=== PATIENT | female | born 1955 | race Caucasian/White ===

== ENCOUNTER 2018-04-04 10:27 | Inpatient (IN) | payer OTHER ==
[2018-04-04] VITALS (7 sets, daily range): BP systolic 116–159; BP diastolic 55–76
[~2018-04-04] VITALS: Ht 157.5 cm; Wt 98.9 kg
--- NOTE | ~2018-04-04 | EKG ---
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 : 1955 Requested By: Kareem Oviedo Order Number: [id number] MD: Jessee Puente Measurements Intervals [place] Rate: 64 P: 36 PA: 174 QRS: 39 QRSD: 90 T: 22 QT: 427 QTc: 441 Interpretive Statements Sinus rhythm Borderline T abnormalities, anterior leads Compared to ECG 06/27/2013 09:16:15 T-wave abnormality is less pronounced Electronically Signed On 04-07-2018 9:04:28 CDT by Jessee Puente [email or web address] <ELECTRONICALLY SIGNED> By: Jsesee Puente MD, [facility] 04/07/18 0904 1033 1033 Jessee Puente MD, [facility] /EPI
--- NOTE | ~2018-04-04 | 2DMMODE ---
[facility] [address] [place] [address] 2 D/M-MODE ECHOCARDIOGRAM Name: JAIMEE BACH [facility] Room #: 208-P [facility] [place] .R.#: [id number] Admission: 04/04/18 Attend Phys: Mekhi Bolton MD Discharge: Date of : 53 Date of Service: 04/04/18 1540 Report #: [id number] THIS REPORT FOR: //name// APPROVED REPORT Study performed: 04/04/2018 13:37:56 EXAM: Comprehensive 2D, Doppler, and color-flow Echocardiogram Patient Location: Bedside Room #: 208 Status: routine BSA: 1.98 HR: 52 bpm BP: 150/91 mmHg Other Information Study Quality: Fair Indications Bradycardia Syncope Hypertension/HDD 2D Dimensions IVC: 20.00 mm Aortic Valve AoV Peak Ivan.: 1.28 m/s AO Peak Gr.: 6.57 mmHg LVOT Max P.70 mmHg LVOT Max V: 0.96 m/s Mitral Valve E/A Ratio: 0.9 MV Decel. Time: 266.27 ms MV E Max Ivan.: 0.96 m/s MV A Ivan.: 1.12 m/s MV PHT: 77.22 ms IVRT: 154.56 ms Pulmonary Valve PV Peak Ivan.: 0.82 m/s PV Peak Gr.: 2.67 mmHg Pulmonary Vein P Vein S: 0.55 m/s P Vein A: 0.31 m/s P Vein D: 0.32 m/s P Vein A Dur.: 147.6 msec [facility] [address] [place] [address] 2 D/M-MODE ECHOCARDIOGRAM Name: JAIMEE BACH [facility] Room #: 208-P [facility] [place] ..#: [id number] Admission: 04/04/18 Attend Phys: Mekhi Bolton MD Discharge: Date of : 53 Date of Service: 04/04/18 1540 Report #: [id number] P Vein S/D Ratio: 1.72 Left Ventricle The left ventricle is normal size. Regional wall motion is not well visualized but grossly normal. There is normal left ventricular wall thickness. The left ventricular systolic function is normal. The left ventricular ejection fraction is within the normal range. LVEF is 60-65%. Grade I - abnormal relaxation pattern. Right Ventricle The right ventricle is normal size. The right ventricular systolic function is normal. Atria The left atrium size is normal. The right atrium size is normal. Aortic Valve The aortic valve is normal in structure. No aortic regurgitation is present. There is no aortic valvular stenosis. Mitral Valve Mild mitral annular calcification There is no mitral valve regurgitation noted. No evidence of mitral valve stenosis. Tricuspid Valve The tricuspid valve is normal in structure. There is no tricuspid valve regurgitation noted. Pulmonic Valve The pulmonary valve is normal in structure. There is no pulmonic valvular regurgitation. Great Vessels The aortic root is normal in size. IVC is normal in size and collapses >50% with inspiration. Pericardium There is no pericardial effusion. <Conclusion> The left ventricular systolic function is normal. Regional wall motion is not well visualized but grossly normal. LVEF is 60-65%. Mild diastolic dysfunction. The aortic valve is normal in structure. No aortic regurgitation or stenosis [facility] [place] [address] 2 D/M-MODE ECHOCARDIOGRAM Name: JAIMEE BACH [facility] Room #: 208-P ADM IN M.R.#: [id number] Admission: 04/04/18 Attend Phys: Mekhi Bolton MD Discharge: Date of : 53 Date of Service: 04/04/181539 Report #: [id number] Mild mitral annular calcification. No mitral valve regurgitation noted. Pulmonary artery pressure could not be reliably ascertained There is no pericardial effusion. <ELECTRONICALLY SIGNED> By: Jessee Puente MD, FACC 04/04/181539 39 39 Jessee Puente MD, FACC /INF
[~2018-04-04 10:27] MED LIST: ACETAMINOPHEN650 M5 PO; ADVIL100 M2 PO; BISOPROLOL FUMAR5 M1 PO; BISOPROLOL FUMAR5 MG PO; CALTRATE 600 +1 EACH PO; CALTRATE-600 W1 EACH PO; CELEBREX 200 M200 M1 PO; COLACE100 MG PO; CYCLOBENZAPRINE10 MG PO; FLEXERIL PO; FLONASE16 GM NASAL; HYDROCODON-ACE1 EAC5 PO; HYDROCODON-ACE1 EAC7 PO; IBUPROFEN 200200 M1 PO; LEVOTHYROXINE0.05 MG PO; LUNESTA3 MG PO; MAALOX PLUS X-150 ML PO; MAGNESIUM250 M1 PO; METHOCARBAMOL750 MG PO; VITAMINC500 PO; XARELTO10 M1 PO
[2018-04-04 11:37] LABS: ANION GAP 9 mmol/L (7-16); BUN 19 mg/dL (7-18); CALCIUM 9.4 mg/dL (8.5-10.1); CHLORIDE 106 mmol/L (98-107); CO2 24 mmol/L (21-32); CREATININE 1.4 mg/dL (0.6-1.0); GLUCOSE 98 mg/dL (74-106); POTASSIUM 4.1 mmol/L (3.5-5.1); SODIUM 139 mmol/L (136-145)
[2018-04-04 11:43] LABS: BASOPHILS 0.8 % (0.0-2.0); EOSINOPHILS 1.2 % (0.0-3.0); HEMATOCRIT 35.3 % (37.0-47.0); HEMOGLOBIN 11.9 gm/dL (12.0-15.0); LYMPHOCYTES 27.1 % (24.0-44.0); MCH 25.5 pg (26.0-34.0); MCHC 33.8 g/dL (28.0-37.0); MCV 75.6 fL (80.0-100.0); PLATELET COUNT 203 thou/uL (150-400); POLYS 64.9 % (36.0-66.0); RBC 4.67 mil/uL (4.20-5.00); RDW 15.7 % (10.5-14.5); WBC 7.7 thou/uL (4.0-11.0)
[2018-04-04 11:45] LABS: MAGNESIUM 2.1 mg/dL (1.8-2.4); TROPONIN-I <0.06 ng/mL (<0.06)
[2018-04-04] MEDS ORDERED: ARICEPT10 MG PO (13:28)
[2018-04-04] MEDS ORDERED: NAMENDA 10 MG T10 MG PO (13:29)
[2018-04-04] MEDS ORDERED: MIDODRINE HCL 55 M1 PO (13:31)
[2018-04-04 17:13] LABS: % SATURATION 12 % (20-39); IRON 40 ug/dL (50-170); TIBC 322 ug/dL (250-450)
[2018-04-05 03:06] LABS: GLYCOHEMOGLOBIN (HGB A1C) 5.2 % (4.8-5.6)
[2018-04-05 03:53] VITALS: BP 113/69
[2018-04-05 06:01] LABS: ABSOLUTE NEUTROPHILS 3.9 thou/uL (1.4-8.2); BASOPHILS 0.6 % (0.0-2.0); EOSINOPHILS 1.3 % (0.0-3.0); HEMATOCRIT 32.9 % (37.0-47.0); HEMOGLOBIN 11.3 gm/dL (12.0-15.0); LYMPHOCYTES 38.7 % (24.0-44.0); MCHC 34.3 g/dL (28.0-37.0); MCV 75.8 fL (80.0-100.0); MONOCYTES 5.6 % (1.0-8.0); PLATELET COUNT 181 thou/uL (150-400); POLYS 53.8 % (36.0-66.0); RBC 4.35 mil/uL (4.20-5.00); RDW 16.1 % (10.5-14.5); WBC 7.2 thou/uL (4.0-11.0)
[2018-04-05 06:15] LABS: CALCIUM 8.9 mg/dL (8.5-10.1); CREATININE 1.3 mg/dL (0.6-1.0); MAGNESIUM 2.2 mg/dL (1.8-2.4); POTASSIUM 3.9 mmol/L (3.5-5.1)
[2018-04-05 06:24] LABS: CHOLESTEROL 150 mg/dL (<200); HDL CHOLESTEROL 40 mg/dL (>40); LDL CHOLESTEROL 96 mg/dL (<100); TC:HDL 3.8 Ratio (Not establshd); TRIGLYCERIDE 71 mg/dL (<150); VLDL 14 mg/dL (<40)
[2018-04-05 07:26] VITALS: BP 135/57
[2018-04-05 10:41] VITALS: BP 148/59
[2018-04-05 10:50] VITALS: BP 148/59
== END 2018-04-05 11:55 | disposition home or self-care (01) | DRG 312 ==
LOC: ER 10:27 → EROBS 12:11 → 2N 13:09
PROVIDERS: Hospitalist; Nurse Practitioner; Physician Assistant
DX: I95.1 Orthostatic hypotension (principal); N17.9 Acute kidney failure, unspecified; R00.1 Bradycardia, unspecified; I10 Essential (primary) hypertension; K21.9 Gastro-esophageal reflux disease without esophagitis; G89.29 Other chronic pain; M54.9 Dorsalgia, unspecified; F03.90 Unspecified dementia, unspecified severity, without behavioral disturbance, psychotic disturbance, mood disturbance, and anxiety; E86.0 Dehydration; D64.9 Anemia, unspecified; E53.8 Deficiency of other specified B group vitamins; Z96.659 Presence of unspecified artificial knee joint; I65.29 Occlusion and stenosis of unspecified carotid artery; Z88.0 Allergy status to penicillin; Z88.2 Allergy status to sulfonamides; Z79.899 Other long term (current) drug therapy
CPT/HCPCS: 10081

== ENCOUNTER 2018-04-14 15:49 | Inpatient (IN) | payer OTHER ==
[~2018-04-14] VITALS: Ht 157.5 cm; Wt 97.2 kg
--- NOTE | ~2018-04-14 | P ---
[facility] [place] [address] [place] [address] PROCEDURE REPORT Name: LALA BACH Room #: 208-P [facility] M.R.#: [id number] Admission: 04/14/18 Attend Phys: Shiraz Norwood MD Discharge: 04/16/18 Date of : 53 Report #: [id number] THIS REPORT FOR: //name// CC: Shiraz Rowland PROCEDURE: Dual chamber pacemaker implantation. PREOPERATIVE DIAGNOSES: 1. Recurrent syncope. 2. Sick sinus syndrome. 3. Symptomatic bradycardia. HISTORY OF PRESENT ILLNESS: The patient is a 62-year-old with a history of recurrent syncopal episodes, who has been wearing a header operator. She was recently in the hospital after she was noted to have a 3-second pause while sleeping. At that time, I did not recommend a pacemaker implantation. However, she continued to wear the monitor, which we were carefully following and she had another 10-second pause during the middle of the day. As such, she is here for dual chamber pacemaker implantation. ANESTHESIA: The patient underwent MAC anesthesia with no anesthesia related complications. DESCRIPTION OF PROCEDURE: The patient underwent informed consent. We discussed the details of the procedure including the risks, which included but not limited to bleeding, infection, vascular damage, cardiac perforation, pneumothorax. She understood these risks and is willing to proceed. As such, she is brought to the EP laboratory in a fasting and unsedated state and prepped and draped in a sterile fashion. I injected lidocaine at the incision site below the level of the right clavicle. The patient is left handed. Next, an incision was made, pocket was created over the prepectoral fascia and access was obtained twice to the right axillary vein. Of note, she did receive IV antibiotics prior to initiation of the procedure and did undergo a venogram. Next, sheaths were positioned using the modified Seldinger technique and then leads were positioned in the right ventricular apex and the right atrial appendage, both with adequate pacing and sensing thresholds. These leads were sutured to the prepectoral fascia using Ethibond. The pocket was irrigated with vancomycin. The device was connected and tested and found to be functioning normally. The pocket was closed in 3 layers and surgical glue was placed to the skin layer and one Steri-Strip was placed at the lateral edge. The patient awoke neurologically and hemodynamically intact with no complications and no significant bleeding. The implanted pacemaker was a [employer], model #2272, serial #[id number]. The atrial lead was a [employer], model # [id number], 46 cm, serial # [id number] with a P-wave of 4.4 millivolts, pacing impedance of 550 ohms and a pacing threshold of 0.75 volts at 0.4 milliseconds. The RV lead was a [employer], model # [id number], 52 cm, serial # [id number]. This lead [address] [address] PROCEDURE REPORT Name: LALA BACH Room #: 208-P [facility] IN M.R.#: [id number] Admission: 04/14/18 Attend Phys: Shiraz Norwood MD Discharge: 04/16/18 Date of : 53 Report #: [id number] demonstrated R-wave of 9.9 millivolts, pacing impedance of 680 ohms and the pacing threshold 0.5 volts at 0.4 milliseconds. The patient received an MRI compatible device due to her known neurologic issues and dementia as well as orthopedic issues. The pacemaker was programmed to DDDR 60-130 mode. CONCLUSIONS: 1. Successful dual-chamber pacemaker implantation. 2. Satisfactory atrial and ventricular pacing and sensing thresholds. <ELECTRONICALLY SIGNED> By: Shiraz Norwood MD 04/21/18 1454 0753 0819 Shiraz Norwood MD /nt
--- NOTE | ~2018-04-14 | D ---
[facility] [place] [address] [place] [address] DISCHARGE SUMMARY Name: LALA BACH Room #: 208-P [facility] IN M.R.#: [id number] Admission: 04/14/18 Attend Phys: Shiraz Norwood MD Discharge: 04/16/18 Date of : 53 Report #: [id number] THIS REPORT FOR: //name// CC: SHIRA Rowland DISCHARGE DIAGNOSES: 1. Recurrent syncope. 2. Symptomatic bradycardia. 3. Sick sinus syndrome. HISTORY OF PRESENT ILLNESS: The patient is a 62-year-old female with some history of dementia, neurologic issues. She has also recently been having new onset syncopal episodes. She was recently admitted here after she was noted to have a 3 second pause while sleeping. She was monitored, but did not have any further arrhythmias. She was therefore discharged with plans to follow up with me in 1 month after she completed wearing her security monitor. On the day of admission here again, she was noted to have another prolonged pause of 10 seconds duration. As such, she was called and readmitted. She underwent successful [employer] MRI compatible dual chamber pacemaker implantation from the right side on 04/15/2018. The procedure was successful without complications. HOSPITAL COURSE: She was monitored in the CCU overnight. On the day of discharge, she denied any chest pain, shortness of breath, fevers or chills. On physical exam, her heart was regular rate and rhythm. Lungs were clear to auscultation bilaterally. Her incision site was healing nicely with a Steri-Strip noted at the lateral edge. Her vitals were stable. Telemetry revealed sinus rhythm. Device interrogation demonstrated normal device function with atrial pacing around 70% and less than 1% ventricular pacing. There were no arrhythmias noted on her device interrogation. The chest x-ray was performed, which I visualized, which showed stable lead positions, and there was no evidence of pneumothorax. As such, she was deemed stable for discharge home. Discharge instructions reviewed. Incision instructions were reviewed. She will follow up with me in 7-10 days for a site check. <ELECTRONICALLY SIGNED> By: Shiraz Norwood MD 04/21/18 1455 0923 1035 Shiraz Norwood MD /nt
--- NOTE | ~2018-04-14 | EKG ---
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
[~2018-04-14 15:49] MED LIST changes: +ARICEPT10 MG PO; +MIDODRINE HCL 55 M1 PO; +NAMENDA 10 MG T10 MG PO
[2018-04-14 19:07] VITALS: BP 155/85
[2018-04-14 19:37] LABS: HEMATOCRIT 37.2 % (37.0-47.0); HEMOGLOBIN 12.3 gm/dL (12.0-15.0); MCH 25.9 pg (26.0-34.0); MCV 78.3 fL (80.0-100.0); RBC 4.75 mil/uL (4.20-5.00); RDW 15.3 % (10.5-14.5); WBC 10.1 thou/uL (4.0-11.0)
[2018-04-14 19:48] LABS: INR 1.1; PROTIME 10.9 Seconds (9.3-11.4)
[2018-04-14 19:52] LABS: ALBUMIN 3.6 g/dL (3.4-5.0); CALCIUM 9.4 mg/dL (8.5-10.1); CREATININE 1.5 mg/dL (0.6-1.0); POTASSIUM 3.6 mmol/L (3.5-5.1); TOTAL BILIRUBIN 0.3 mg/dL (<0.1-1.0); TOTAL PROTEIN 7.5 g/dL (6.4-8.2)
[2018-04-14 20:49] VITALS: BP 131/61
[2018-04-15] VITALS (8 sets, daily range): BP systolic 123–160; BP diastolic 65–84
[2018-04-16 00:14] VITALS: BP 136/65
[2018-04-16 02:05] VITALS: BP 136/65
[2018-04-16 04:22] VITALS: BP 138/78
[2018-04-16 08:00] VITALS: BP 132/59
[2018-04-16 09:36] VITALS: BP 132/59
[2018-04-16 09:42] VITALS: BP 132/59
== END 2018-04-16 10:30 | disposition home or self-care (01) | DRG 244 ==
LOC: 2N 15:49 → ENTRNSPT 04-16 10:10 → EDTRNSPTSTS 04-16 10:12 → 2N 04-16 10:30
PROVIDERS: Nurse Practitioner Gerontology
DX: I49.5 Sick sinus syndrome (principal); F03.90 Unspecified dementia, unspecified severity, without behavioral disturbance, psychotic disturbance, mood disturbance, and anxiety; I10 Essential (primary) hypertension; I95.1 Orthostatic hypotension; K21.9 Gastro-esophageal reflux disease without esophagitis; G89.29 Other chronic pain; M54.9 Dorsalgia, unspecified; Z88.0 Allergy status to penicillin; Z88.2 Allergy status to sulfonamides; Z79.899 Other long term (current) drug therapy
CPT/HCPCS: 10081; 62110; 62900; 70005